=== PATIENT | male | born 1995 | race Caucasian/White ===

== ENCOUNTER 2016-12-14 13:31 | Outpatient (CLI) | payer OTHER ==
--- NOTE | 2016-12-14 17:49 | DIAGNOSTIC IMAGING REPORT ---
PROCEDURE: CT UPPER EXT W/O CONT - RIGHT INDICATION: Recurrent dislocation, damage to joint TECHNIQUE: Axial thin-slice CT images were obtained through the right elbow Coronal and sagittal reformations were created. COMPARISON: None. FINDINGS: Soft tissues: No significant joint effusion. Skin thickening and subcutaneous edema along the posterior elbow. Bones: There is a well corticated avulsion fracture of the coronoid process with a single curvilinear fragment measuring about 1.2 by 0.4 by 0.6 cm in size within 3 mm of the donor site. There is a curvilinear defect in the posterior aspect of the capitellum with associated tiny osseous fragments, minimally displaced. There is a tiny loose body, 4-mm fragment posterior to the radial head. (Series 3 image 76 and 77, coronal series 200 images 53 and 54.) There appears to be a very slight rotational subluxation of the elbow with slight anterior translation of the capitellum on the radial head and decreased medial joint space of the ulnohumeral joint. The lateral aspect of the humeral trochlea is subluxed anteriorly, perched along the coronoid process. IMPRESSION: 1. Sequelae of prior posterior elbow dislocations including a well-corticated coronoid process fracture, impaction fracture of the posterior capitellum, and partially perched elbow indicating stage II posterolateral elbow instability. 2. Coronoid process loose body is well corticated and mildly displaced. 3. Tiny loose body from comminuted capitellar fracture is posterior to the radial head.
== END 2016-12-14 23:00 ==
LOC: CT SRH 13:31
DX: S53.104S Unspecified dislocation of right ulnohumeral joint, sequela (principal); M24.021 Loose body in right elbow